=== PATIENT | female | born 1950 | race Caucasian/White ===

== ENCOUNTER 2020-07-07 06:12 | Day surgery (SDC) | payer OTHER ==
[2020-07-04 10:28] VITALS: BMI 38.4
[2020-07-07] MEDS ORDERED: MIDAZOLAM HCL 2 MG/2 ML SINGLE DOSE VIAL ONE (07:18)
[2020-07-07] MEDS ORDERED: ROPIVACAINE HCL 0.5% 30ML VIAL ONE (07:18)
[2020-07-07] MEDS ORDERED: EPINEPHrine 1:1,000 1 MG/1 ML - 30ML VIAL (INJECTION) ONE (07:20)
[2020-07-07] MEDS ORDERED: SUCCINYLCHOLINE CHLORIDE 200 MG/10 ML SYRINGE ONE (07:42)
[2020-07-07] MEDS ORDERED: PROPOFOL 20 ML ONE ×4 (07:42)
[2020-07-07] MEDS ORDERED: SEVOFLURANE 250 ML BTL ONE (08:50)
[2020-07-07] MEDS ORDERED: ONDANSETRON 4 MG/2 ML VIAL ONE (08:50)
[2020-07-07] MEDS ORDERED: DEXAMETHASONE SOD PHOSPHATE 4 MG/1 ML VIAL ONE (08:50)
[2020-07-07] MEDS ORDERED: ceFAZolin SODIUM 1 GM VIAL ONE (08:50)
[2020-07-07] MEDS ORDERED: KETOROLAC TROMETHAMINE 30 MG/1 ML VIAL ONE (08:50)
[2020-07-07] MEDS ORDERED: ONDANSETRON 4 MG/2 ML VIAL IVPUSH PRN (09:13)
[2020-07-07] MEDS ORDERED: PROMETHAZINE HCL 25 MG/1 ML VIAL IVPUSH PRN (09:13)
[2020-07-07] MEDS ORDERED: oxyCODONE HCL 5 MG TABLET PO PRN ×2 (09:13)
[2020-07-07 11:50] VITALS: TEMP 97.7
[2020-07-07 11:53] VITALS: BP 101/64; PULSE 66
== END 2020-07-07 11:30 | disposition home or self-care (01) ==
LOC: FASU 06:12
PROVIDERS: ATTEND Orthopaedic Surgery
PROC: 0LS34ZZ Reposition Right Upper Arm Tendon, Percutaneous Endoscopic Approach (ICD-10-PCS; 2020-07-07)
PROC: 0RNJ4ZZ Release Right Shoulder Joint, Percutaneous Endoscopic Approach (ICD-10-PCS; 2020-07-07)
PROC: 0MM14ZZ Reattachment of Right Shoulder Bursa and Ligament, Percutaneous Endoscopic Approach (ICD-10-PCS; 2020-07-07)
PROC: 0LQ14ZZ Repair Right Shoulder Tendon, Percutaneous Endoscopic Approach (ICD-10-PCS; principal; 2020-07-07 08:24)
PROC: 0RHJ44Z Insertion of Internal Fixation Device into Right Shoulder Joint, Percutaneous Endoscopic Approach (ICD-10-PCS; 2020-07-07 08:24)
DX: M75.121 Complete rotator cuff tear or rupture of right shoulder, not specified as traumatic (principal); M75.41 Impingement syndrome of right shoulder; M75.01 Adhesive capsulitis of right shoulder; M65.811 Other synovitis and tenosynovitis, right shoulder; M19.011 Primary osteoarthritis, right shoulder; S43.431A Superior glenoid labrum lesion of right shoulder, initial encounter; X58.XXXA Exposure to other specified factors, initial encounter; Y92.9 Unspecified place or not applicable; Y93.9 Activity, unspecified
CPT/HCPCS: 29807; 29823; 29827; C1713; 94760